=== PATIENT | male | born 1945 | race Caucasian/White ===

== ENCOUNTER 2018-02-16 02:00 | Emergency (ER) | payer OTHER ==
[~2018-02-16] VITALS: Ht 172.7 cm; Wt 113.4 kg
[2018-02-16] MEDS ORDERED: KETO10TA2 PO (05:23)
[2018-02-16] MEDS ORDERED: TAMS0.4C PO (05:23)
== END 2018-02-16 05:36 | disposition home or self-care (01) ==
LOC: ER 02:00
DX: R10.11 Right upper quadrant pain (principal); R10.31 Right lower quadrant pain